=== PATIENT | male | born 1980 | race African-American/Black ===

== ENCOUNTER → 2016-05-10 | Emergency (ER) | payer OTHER ==
[2016-05-11 00:10] LABS: BLOOD UREA NITROGEN 13 mg/dL (9-23); CALCIUM SERUM 9.2 mg/dL (8.4-10.2); CARBON DIOXIDE 27 mmol/L (22-31); CHLORIDE 105 mmol/L (100-111); GLOM FILT RATE Estimated ABOVE60 mL/min (>60); GLUCOSE FASTING 117 mg/dL (70-110); POTASSIUM 3.5 mmol/L (3.5-5.1); SODIUM 141 mmol/L (135-145)
[2016-05-11 00:11] LABS: ALCOHOL BLOOD <5 mg/dL (0)
== END | disposition home or self-care (01) ==
LOC: CED 23:43
PROVIDERS: Emergency Medicine
DX: R56.9 Unspecified convulsions (principal)
CPT/HCPCS: 36415; 80048; 82947; 99284; G0480